=== PATIENT | male | born 1940 | race Caucasian/White ===

== ENCOUNTER 2020-02-05 13:29 | Inpatient (IN) | payer OTHER ==
[~2020-02-05] VITALS: Ht 182.9 cm; Wt 54.8 kg
[~2020-02-05 13:29] MED LIST: ACETAMINOPHEN500 MG PO; FOLIC ACID1 MG PO; LEVAQUIN 500 M500 M3 PO; LOSARTAN-HCTZ1 EAC3 PO; MAGNESIUM250 M1 PO; NORCO 5-325 TA1 EAC1 PO; POTASSIUM CHLO500 G1 PO; POTASSIUM20 PO; PRENATAL PO; PROAIR HFA8.5 GM INH; PROTONIX40 M1 PO; VENTOLIN HFA 1818 GM INH; VITAMIN B-1100 M1 PO; VITAMIN D325 MCG PO
[2020-02-05 17:23] VITALS: BP 116/82
--- NOTE | 2020-02-05 17:25 | NUR ---
ARRIVES TO FLOOR VIA CART ACCOMPNIED BY AMBULANCE ANUSHA FROM [facility] IN [place] WHERE HE HAS BEEN FOR APPROX 2 WEEKS WITH ETOH ABUSE,ELECTROLYTE IMBALANCE. IS A POOR HISTORIAN UNABLE TO GIVE ANY RELEVENT INFORMATION-ORIENTED TO NAME ONLY-SPEECH FRAGMENTED. IS COOPERATIVE WITH REQUESTS FROM STAFF BUT RESTLESS-ATTEMPTING TO PUT LEGS OVER SIDERAILS DURING ADMIT INTERVIEW. DENIES C/O PAIN-VS OBTAINED. PLACED ON FALLS PROTOCOL -IS NOTED TO HAVE EXCORITATION TO INNER THIGHS,PERINEAL AREA MULTIPLE BRUISES ON ARMS. DAUGHTER KACIE GUPTA WITH WHOM PT LIVES CONTACTED AND DID PROVIDE MEDICAL HISTORY-BACKGROUND INFO STATES HAS BEEN DRINKING DAILY FOR " LONG I CAN REMEMBER" STATES INCREASED CONFUSION AND INFREQUENT A/V HALLUCINATIONS BEGAN APPROX 2-3 MONTHS AGO.
--- NOTE | 2020-02-05 18:48 | NUR ---
ORIENTED TO NAME ONLY UPON INITIAL ASSESSMENT-DAUGHTER KACIE GUPTA CONTACTED VIA PHONE AND STATES SHE IS NOT DPOA BUT IS AGREEMENT WITH ADMISSION-DR. FORD CONTACTED AND IS ADMITTING PT UNDER [facility] ACT.
[2020-02-05 19:33] VITALS: BP 92/60
--- NOTE | 2020-02-05 23:00 | NUR ---
Pt able to voice his name but not birthday. Confused. Pt was in the day room on a emily chair at time of assessment. Pt was pleasant and cooperative with assessment. Pt denies pain. Pt denies anxiety and/or depression. Pt took meds whole but chewed it. Pt currently in bed sleeping. Fall precaution in place. Will continue to monitor.
[2020-02-06 07:42] VITALS: BP 117/80
--- NOTE | 2020-02-06 10:05 | NUR ---
GREGORY spoke with formerly [facility] Charlee. She and the pt have lived togther for 15 years. Charlee provided a good hx from October 2019 describing pt's increased confusion, visual hallucinations, lack of food intake, medicationg and bribing him with ETOH to eat. Pt has denied feeling hungry and prefers rum and coke. He's also been on pain killers for a fall. Pt's last drink was 01/23/20. Sw provided education about [facility] and d/c planning. She wants him back in the home and sw reported the need for 08/02 supervision and extra support. Gregory completed the intake assessment and TP.
--- NOTE | 2020-02-06 11:33 | NUR ---
CONVERSATION FRAGMENTED-INCOHERENT AT TIMES. ORIENTED TO NAME ONLY, SOME MILD MOOD LABILITY WILL BE LAUGHING AT PEERS ONE MOMENT AND THE NEXT BECOME ANGRY STATING "OH LOOK AT HER SHE IS UPSET WITH ME-SHE HAS MY 100 DOLLAR BILL" DID TAKE MEDICATIONS WITHOUT RESISTANCE-REQUIRES SET UP AND PROMPTING/QUEING AT MEALS-ATE APPROX 25 PERCENT OF BREAKFAST. REQUIRES ASSIST OF TWO TO TRANSFER TO/FROM CHAIR-INCONT. OF URINE X 2 TODAY. REMAINS ON FALSS PRECAUTIONS FOR UNSTEADY GAIT AND IMPULSIVE BEHAVIOR-ATTEMPTING TO GET UP ON OWN.
--- NOTE | 2020-02-06 14:58 | NUR ---
DURING INCONTINENT CARE NOTED TO HAVE REDDENED,EXCORIATED AREA TO INNER THIGHS,SCROTUM AND RECTUM,AREA CLEANSED AND SKIN APPEARS TO BE PEELING -PT DOES REPORT BURNING "I FEEL LIKE MY ASS IS ON FIRE" NOTED TO HAVE 2 PEA SIZE SUPERFICIAL LESIONS TO MIDLINE COCYX WHICH APPEAR TO HAVE TO BE PARTIALLY SCABBED. AREA CLEANSED AND FOAM ADHESIVE DRESSING APPLIED TO PROVIDE ADDITIONAL PADDING TO BONY PROMINENCE. ANTIFUNGAL CREAM APPLIED TO EXCORIATED AREA AND LEFT OPEN TO AIR. WAFFLE PAD APPLIED TO GERICHAIR AND PT PLACED IN BED ON LEFT SIDE.
--- NOTE | 2020-02-06 15:25 | NUR ---
WOUND CONSULT; ASSESSMENT OF THIS PATIENT HAS ERYTHEMA TO HIS SACRUM/BUTTOCKS AND S/S OF FRICTION. THE PERINEAL AREAS ARE FIERY RED. LIKLY FUNGAL. THIS PATIENT WAS AT [facility] AND HAS NOT BEEN USING AN ANTIFUNGAL. IF THIS AREA HAS NOT IMPROVED IN 24 HOURS. REQUEST AN ANTIFULGAL MEDICATION SUCH NYSTATIN POWDER FROM THE PCP. RECCOMENDATIONS; -ANTIFUNGAL BARRIER CREAM TO PERINEAL AREAS BID -ZGUARD TO SACRUM/BUTTOCKS BID DISCUSSED WITH GABRIEL
--- NOTE | 2020-02-06 16:11 | NUR ---
Pt was invited but did not attend group because he was sleeping
[2020-02-06 19:11] VITALS: BP 92/50
--- NOTE | 2020-02-06 21:54 | H ---
[facility] [place] [address] HISTORY AND PHYSICAL Name: KATHIE GUPTA Room #: 519B-B ADM IN M.R.#: [id number] Admission: 02/05/20 Attend Phys: Romaine Cruz DO Discharge: Date of : 40 Report #: [id number] THIS REPORT FOR: cc: Lev Gallagher,Lev Cooper,Romaine Sewell DO ~ CC: Romaine Gallagher DATE OF SERVICE: 02/05/2020 INPATIENT PSYCHIATRIC EVALUATION ATTENDING PHYSICIAN: Romaine Cruz DO. MEDICAL PLANNER: Fausto Keller M.D. SOURCES OF INFORMATION: Records from [facility], where the patient was hospitalized from 01/23 through 02/04, and interview with the patient. CHIEF COMPLAINT: Unspecified. HISTORY OF PRESENT ILLNESS: This is a 79-year-old male who was initially brought to the [facility] ER in [place] on 01/23 for altered mental status. The patient is a very poor historian, so I utilized the initial H and P from 01/23 at [facility] , he was brought by his daughter. In October, he first had hallucinations. He thought that he was on the computer playing a game, hallucinations came and went. His daughter thought that when he ate food, he did not have a problem; if he does not eat or he drinks instead, then he would have the hallucinations. He has a history of alcoholism. She told him that he needed to eat and then it would be okay for a couple of days. By 01/15, the daughter called 911 because he fell; he also had fallen in November, but he refused to go to the doctor. He was admitted at the end of December and diagnosed with electrolyte abnormalities. From the time he came home to admission, he spent in his bed. His daughter brought him food and a rum and Coke for lunch, dinner and bedtime, so it sounds like the daughter was keeping him going through withdrawals. His daughter was trying to tell him to stop drinking. His daughter said that the ER doctor told him he could drink twice a day as long as he ate. The patient has told his daughter that he used to drink 1.7 liter bottle of rum every 3 days, he was drinking 40 shots in a 3-day period; now, he is down to a bottle a week since 12/17. His daughter states that he has trouble with his memory and he has had trouble with his memory for 8 years[place] [address] HISTORY AND PHYSICAL Name: KATHIE GUPTA Room #: 519B-B [facility] IN .R.#: [id number] Admission: 02/05/20 Attend Phys: Romaine rCuz, Discharge: Date of : 40 Report #: [id number] repeats himself a lot. On interview today, the patient was unable to tell me his daughter's name, the day of the week. He was unclear as to why he had been brought from [facility] to [facility]. Unable to get other history. REVIEW OF SYSTEMS: I could not possibly hope to get a reliable 10-point review of systems. I pressed on his belly, his chest, his arms; he did not show clear pain or guarding from that. PAST MEDICAL HISTORY: Includes chronic back pain, hypertension, medication noncompliance, alcoholic dementia diagnosed at [facility]; encephalopathy, metabolic, improving; underlying dementia, alcohol use disorder, generalized weakness, folate deficiency, hypomagnesemia, transaminitis, elevated brain natriuretic peptide, severe protein-calorie malnutrition. SOCIAL HISTORY: Lives with his daughter, it sounds like intermittently. He saw the PMR doctor. He has difficulty with self-care, transfers and mobility. Physical exam was grossly normal. It sounds like he has been smoking for 67 years, 1/4 pack per day, at least 6 to 8 drinks per day of alcohol. His discharge medications were folic acid, thiamine, vitamin D3, pantoprazole, potassium chloride, albuterol sulfate p.r.n. and magnesium 250 mg p.o. daily. They recommended against a narcotic at [facility]. I did not get a handle if he has withdrawal seizures, but clearly he had withdrawal delirium. ALLERGIES: PENICILLIN. The patient does not have a formal surrogate decision maker. LABORATORY DATA: Most recent laboratories from 01/30; white count 7.7, H and H 11.4 and 35.4; MCV 110.5, consistent with alcoholism; and platelets count 389. Diff was grossly normal. He had 1+ anisocytosis, 1+ microcytic cells. Coags were 11.6 on 01/24, INR 1.1, APTT 26.1. Last chemistry on 01/30; sodium 135, potassium 4.2, chloride 97, bicarbonate 24, anion gap 14, BUN 25, creatinine 1.2, estimated GFR 58, glucose 98, calcium 9.5. GGT 33 on 01/24, alkaline phosphatase 64, ammonia less than 10. On 01/23, troponin less than 0.06. On 01/24, albumin 2.3 which is absolutely low, prealbumin 10.2. His weight is 55.972 kg, BMI of 16.7, which is clearly very malnourished. TSH 0.705, T4 7.1 [facility] [address] [place] [address] HISTORY AND PHYSICAL Name: KATHIE GUPTA Room #: 519B-B ADM IN M.R.#: [id number] Admission: 02/05/20 Attend Phys: Romaine Cruz, Discharge: Date of : 40 Report #: [id number] on 01/24, free T3 of 1.6. Microbiology was done on 01/24 through the urine culture, which was negative. There was 1 blood culture done on 01/23, which showed no growth. PHYSICAL EXAMINATION: VITAL SIGNS: Today, temperature 36.8, pulse 110, respirations 18, BP 92/60, O2 sat 97%. MUSCULOSKELETAL: Nonambulatory, seated in Jalyn chair, appearing cachectic, grossly malnourished. MENTAL STATUS EXAMINATION: This is a well-developed, frail, ill-appearing male, appearing older than stated age. Attention impaired. Concentration impaired. Speech has normal rate, volume and tone. Thought process, linear and limited. Thought content, fairly prominent poverty of thought. No psychomotor agitation or psychomotor retardation, some almost to indifference to his deficits. Denied suicidal or homicidal ideations. Denied auditory, visual or tactile hallucinations. Only oriented to self; not to time, situation or place. Insight impaired, judgment impaired. Memory not formally tested, but known to be grossly impaired. Fund of knowledge well below average in baseline. FORMULATION: A 79-year-old male, inter-hospital transfer from [facility]. There was a 2-day delay due to critical staffing here in [place]. 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 PLAN: We will do a brief assessment of his cognition. The patient will require memory care placement. Unfortunately, unless there is a more favorable history I can obtain from his daughter, I view his deficits as not being reversible, and goals are certainly comfort, dignity and safety at this point. Time spent on this interview, evaluation preparation was around 45 minutes. STRENGTHS: Few, perhaps that he has insurance with [employer]. WEAKNESSES: Only has Medicaid. ESTIMATED LENGTH OF STAY: 7 to [address] [address] HISTORY AND PHYSICAL Name: KATHIE GUPTA Room #: 519B-B ADM IN .R.#: [id number] Admission: 02/05/20 Attend Phys: Romaine Cruz DO Discharge: Date of : 40 Report #: [id number] Proceed with evaluation for stabilization on Geriatric Psychiatry. <ELECTRONICALLY SIGNED> By: Romaine Cruz DO 02/06/20 [id number] Romaine Cruz, /nt
--- NOTE | 2020-02-07 04:52 | NUR ---
Pt was in the dayroom, cheerful at time of assessment. Pt was able to oriented to name. Confused. Forgetful. Pt was cooperative with assessment. Meds given crushed. Antifungal applied to pt's bottom. Pt's bottom open to air. SHOE LACER hospitalist special population paraprofessional notified that pt takes protonix in the am, however pt is unable to take meds whole. Protonix changed to pepcid. Pt currently in bed sleeping. Will continue to monitor.
[2020-02-07 07:49] VITALS: BP 96/68
--- NOTE | 2020-02-07 12:44 | NUR ---
WOUND CARE F/U; ROUNDING TODAY ONLY TO COMMUNICATE THE ORDERS WITH THE RN. IF SCROTUM HAS NOT IMPROVED TODAY, GET AN ORDER FOR NYSTATIN POWDER OR THE PCP CHOICE. DISCUSSED WITH RN
[2020-02-07 12:54] VITALS: BP 96/68
--- NOTE | 2020-02-07 13:36 | NUR ---
PATIENT HAS BEEN UP, AND OUT ON THE UNIT SITTING A RECLINER. PATIENT TOOK MORNING MEDICATION WHOLEIN ICECREAM, WELL TOLERATED. APPETITE IS POOR, PATIENT EATS LESS THAN 25% MEALS, DRINKING FLUID FAIRLY WELL. PATIENT IS INCONTINENT OF BOWEL/BLADDER, HAD BOWEL MOVEMENT THIS AFTERNOON, GOOD PERICARE GIVEN BY STAFF. REBECCA AREA REMAIN REDDENED, BARRIER CREAM APPLIED PER ORDER. WOUND CARE NURSE REOMMENDED LETTING DR. BARRIOS KNOW TO ORDER NYSTATIN POWDER IF AREA REMAIN REDDENED. DR. FORD NOTIFIED. ORDER FOR NYSTATIN POWER TO PERIARE BID NOTED. PATIENT PUT IN BED TO PUT PRESSURE OF BUTTOCKS, DR. BARRIOS AWARE. PATIENT IS FORGETFUL, CONFUSED, UNABLE TO APPROPRIATELY REPOND TO ASSESSMENT QUESTIONS. PATIENT REQUIRES ASSIST OF TWO STAFF TO COMPLETE ADL. WHILE CLEANING PATIENT, HE THREATENED STAFF " I AM GOING TO KICK SOMEONE" PATIENT REDIRECTED, AND HE CALMED DOWN. MOOD IMPULSIVE, AFFECT IS FLAT, AND BLUNTED. PATIENT CURRENTLY IN BED RESTING. WILL CONTINUE TO REDIRECT, AND MONITOR FOR SAFETY.
--- NOTE | 2020-02-07 19:24 | NUR ---
Care of patient assumed at 1915. Patient is sitting in recliner in the day room. Oriented to self only. Cooperative with assessment, though unable to answer many questions as he is not able to find words. HS faint, LS diminished in all park, BS active x 4. Takes scheduled K+ with some difficulty. Assisted to bed after medication is administered and he is found to be incontinent of stool. Cleaned up, nystatin applied as ordered, and patient placed in bed. At 2229 patient is found to have been incontinent of stool again, a large amount. Full bed change compelted as patient is cleaned and abrrier cream applied to protect skin. Throughout this interchange, patient is rambling about having to do everyone else's work, as if he is on a job site.
[2020-02-07 19:52] VITALS: BP 105/80
[2020-02-08 07:25] VITALS: BP 111/62
[2020-02-08 09:44] VITALS: BP 111/62
--- NOTE | 2020-02-08 10:56 | NUR ---
1035 RESUMMED CARE FROM OVERNIGHT SHIFT THIS AM, PATIENT IN DAY ROOM QUIET CALM. PATIENT TOOK MEDICATION CRUSHED IN YOGART WITHOUT INCIDENCE. PATIENTS ABDOMEN SOFT ROUND BOWEL PRESENT LUNGS CLEAR ORIENTED TO ONLY SELF ONLY. PATIENT DENIES SI/HI/AH/VH AT PRESENT PATIENT CAALM COOPERTIVE. PATIENT HAS REDDNESS IN GROIN AREA I PUT NYSTATIN IN AREA, WILL CONTINUE TO MONITOR PATIENT FOR SAFETY AND BEHAVIORS.
--- NOTE | 2020-02-08 19:24 | NUR ---
Care of patient assumed at 1915. Patient is laying in bed. Confused and generally disoriented, patient had stripped off his brief and soiled the bed. Patient cleaned up and dressed. Bedding changed complete. Patient unable to appreciate assessment questions with the exception of pain, which he denies. Does allow HS, LS, BS to be assessed - all WNL. Patient sits in a recliner in the day room for the next 3 hrs. Compliant with HS K+. Assisted to bed at 2330 and weight obtained - 120.9. Rests fitfully through the night.
[2020-02-08 19:39] VITALS: BP 99/69
[2020-02-09 07:24] VITALS: BP 99/65
[2020-02-09 08:35] VITALS: BP 99/65
--- NOTE | 2020-02-09 08:36 | NUR ---
PT SITTING IN MICKI CHAIR. PT TOOK MAIN MEDS. PT STATING THAT THIS RECORDS COORDINATOR GETS 3 CENTS AND HE GETS 2 CENTS FOR THESE MEDS. PT LOOKS SUPSISIOUS AT STAFF. PT NEEDS ASSISTANCE X2 STAFF WITH TRANSFERS. PT STATED HE FEELS GOOD TODAY. PT STATED LONG I DON'T GET MY PANTS KNOCKED OFF HIM. TREMORS TO EXT. SLIGHT [place] TRIBE. DENIES PAIN, PT STATED HE WILL LET THIS RECORDS COORDINATOR KNOW IF HE IS HURTING.
--- NOTE | 2020-02-09 10:30 | NUR ---
[facility] spoke with Charlee and reported that d/c will be today using a stretcher van with [facility]. [facility] will also set up inlcuding pt/ot/st and [facility], nursing for meds management. D/ will be at 2PM. reported this to nursing
--- NOTE | 2020-02-09 11:43 | NUR ---
WOUND CARE FOLLOW UP; THE PATIENTS ESCORIATED BUTTOCK/SACRAL AREAS AND SCROTUM AND GROIN RASH ARE HEALED. THE PATIENTS OVERALL MENTATION IS IMPROVED. THERE IS NO APPARENT NEED TO CONTINUE FOLLOWING THIS PATIENT. PLEASE RECONSULT IF NECESSSARY. DISCUSSED WITH GABRIEL
--- NOTE | 2020-02-09 12:35 | NUR ---
SW called [facility], [facility], [facility], [facility], [facility], and [facility]. None could accept this pt due to insurnace barrieres, and staffing. [facility] accepted this tp. Gregory Sent the referral, they will start coverage on Wednesday. Gregory checked with Dr Cruz and he stated that would be fine.
[2020-02-09 13:11] VITALS: BP 99/65
[2020-02-09] MEDS ORDERED: NYAMYC15 GM TOP (13:45)
[2020-02-09] MEDS ORDERED: K-DUR 20 MEQ T20 MEQ PO (13:46)
[2020-02-09] MEDS ORDERED: PEPCID20 MG PO (13:46)
[2020-02-09] MEDS ORDERED: COZAAR 50 MG TA50 M1 PO (13:47)
--- NOTE | 2020-02-09 14:05 | NUR ---
PT TRANSPORT HERE TO TAKE HIM TO FAMILY. PT CLEANED UP AND APPLIED NEW BRIEF. PT PLACED ON STRETCHER AND TAKEN TO VAN. PT GRIMACED WHEN TURNING. WILL GIVE REPORT TO FAMILY.
--- NOTE | 2020-02-09 14:16 | NUR ---
GIVING REPORT TO TIFFANY [phone]. WENT OVER MEDICATION AND WOUND CARE ON NYSTATIN AND CREAM.
== END 2020-02-09 14:15 | disposition home health service (06) | DRG 884 ==
LOC: SBH 13:29
PROVIDERS: ADMIT Psychiatry & Neurology Psychiatry; ATTEND Psychiatry & Neurology Psychiatry
DX: F03.91 Unspecified dementia, unspecified severity, with behavioral disturbance (principal); F01.51 Vascular dementia, unspecified severity, with behavioral disturbance; E43 Unspecified severe protein-calorie malnutrition; G93.40 Encephalopathy, unspecified; F19.20 Other psychoactive substance dependence, uncomplicated; Z68.1 Body mass index [BMI] 19.9 or less, adult; G89.29 Other chronic pain; M54.9 Dorsalgia, unspecified; I10 Essential (primary) hypertension; Z91.14 Patient's other noncompliance with medication regimen; Z88.0 Allergy status to penicillin; Z82.49 Family history of ischemic heart disease and other diseases of the circulatory system
CPT/HCPCS: 10880